=== PATIENT | male | born 1940 | race Caucasian/White ===

== ENCOUNTER → 2017-07-24 08:01 | Outpatient (CLI) | payer MEDICARE, OTHER, SELFPAY ==
[2016-05-31 08:46] VITALS: BMI 23.2
[2017-07-24 08:38] LABS: AST(SGOT) 18 U/L (15-37); Alanine Aminotransfer ALT/SGPT 20 U/L (16-61); Albumin, Serum 3.9 g/dL (3.2-5.0); Alkaline Phosphatase 118 U/L (45-117); Bilirubin, Direct 0.12 mg/dL (0.00-0.30); Cholesterol 120 mg/dL (200); Globulin 3.4 g/dL (2.2-4.2); High Density Lipoprotein 60 mg/dL; Protein, Total 7.3 g/dL (6.4-8.2); Triglycerides 113 mg/dL; Very Low Density Lipoprotein 23 mg/dL (5-40)
== END ==
PROVIDERS: Family Provider Family Medicine; PCP Family Medicine; Visit Provider Internal Medicine Cardiovascular Disease
DX: E78.5 Hyperlipidemia, unspecified (principal); Z79.899 Other long term (current) drug therapy
CPT/HCPCS: 36415; 80061; 80076

== ENCOUNTER → 2018-03-10 08:06 | Outpatient (CLI) | payer MEDICARE, OTHER, SELFPAY ==
[2016-05-31 08:46] VITALS: BMI 23.2
[2018-03-10 10:08] LABS: AST(SGOT) 16 U/L (15-37); Alanine Aminotransfer ALT/SGPT 22 U/L (16-61); Albumin, Serum 3.8 g/dL (3.2-5.0); Alkaline Phosphatase 113 U/L (45-117); Bilirubin, Direct 0.14 mg/dL (0.00-0.30); Cholesterol 113 mg/dL (200); Globulin 3.5 g/dL (2.2-4.2); High Density Lipoprotein 59 mg/dL; Protein, Total 7.3 g/dL (6.4-8.2); Triglycerides 121 mg/dL; Very Low Density Lipoprotein 24 mg/dL (5-40)
== END ==
PROVIDERS: Family Provider Family Medicine; PCP Family Medicine; Referring Provider Internal Medicine Cardiovascular Disease; Visit Provider Internal Medicine Cardiovascular Disease
DX: E78.5 Hyperlipidemia, unspecified (principal); Z79.899 Other long term (current) drug therapy
CPT/HCPCS: 36415; 80061; 80076

== ENCOUNTER → 2018-03-13 10:12 | Outpatient (CLI) | payer MEDICARE, OTHER, SELFPAY ==
[2016-05-31 08:46] VITALS: BMI 23.2
[2018-03-13 11:41] LABS: Absolute Lymphocyte Count 1.07 X10^3/ul (0.83-4.51); Absolute Neutrophil Count 5.1 X10^3/uL (2.0-7.7); Basophil# 0.04 X10^3/uL; Basophil% 0.6 % (0-1); Eosinophil# 0.22 X10^3/uL; Eosinophils% 3.1 % (0-5); Hematocrit 42.3 % (40-54); Hemoglobin 13.9 g/dl (13.0-16.5); Lymphocyte # 1.07 X10^3/ul (4.0); Lymphocyte % 15.2 % (19-41); Mean Corp Hgb Conc 32.9 g/gl (32-36); Mean Corpuscular Volume 97.5 fL (80-94); Mean Platelet Vol. 12.5 fl (6.2-12.0); Monocyte# 0.62 X10^3/uL; Monocyte% 8.8 % (0-10); Neutrophil # 5.08 X10^3/uL (2.7-7.7); Neutrophil % 72.2 % (47-70); Platelet Count 181 K/mm3 (150-450); RBC Distribution Width CV 13.1 % (11.6-14.6); RBC Distribution Width SD 46.2 fl (35.1-43.9); Red Blood Count 4.34 M/mm3 (4.6-6.2)
[2018-03-13 11:46] LABS: POSITIVE COUNT NO; POSITIVE DIFFERENTIAL NO; POSITIVE MORPHOLOGY NO
== END ==
PROVIDERS: Family Provider Family Medicine; PCP Family Medicine; Visit Provider Physician Assistant Medical
DX: I10 Essential (primary) hypertension (principal)
CPT/HCPCS: 36415; 85025

== ENCOUNTER → 2018-06-02 08:03 | Outpatient (CLI) | payer MEDICARE, OTHER, SELFPAY ==
[2016-05-31 08:46] VITALS: BMI 23.2
[2018-03-13 09:17] VITALS: BMI 22.5
== END ==
PROVIDERS: Family Provider Family Medicine; PCP Family Medicine; Visit Provider Psychiatry & Neurology Neurology
DX: G25.0 Essential tremor (principal); R56.9 Unspecified convulsions
CPT/HCPCS: 36415

== ENCOUNTER → 2018-09-03 08:02 | Outpatient (CLI) | payer MEDICARE, OTHER, SELFPAY ==
[2016-05-31 08:46] VITALS: BMI 23.2
[2018-09-03 09:43] LABS: AST(SGOT) 18 U/L (15-37); Alanine Aminotransfer ALT/SGPT 19 U/L (16-61); Albumin, Serum 3.8 g/dL (3.2-5.0); Alkaline Phosphatase 117 U/L (45-117); Bilirubin, Direct 0.15 mg/dL (0.00-0.30); Cholesterol 124 mg/dL (200); Globulin 3.3 g/dL (2.2-4.2); High Density Lipoprotein 57 mg/dL; Protein, Total 7.1 g/dL (6.4-8.2); Triglycerides 121 mg/dL; Very Low Density Lipoprotein 24 mg/dL (5-40)
== END ==
PROVIDERS: Family Provider Family Medicine; PCP Family Medicine; Referring Provider Internal Medicine Cardiovascular Disease; Visit Provider Internal Medicine Cardiovascular Disease
DX: E78.5 Hyperlipidemia, unspecified (principal)
CPT/HCPCS: 36415; 80061; 80076

== ENCOUNTER 2018-10-20 05:18 | Day surgery (SDC) | payer MEDICARE, OTHER, SELFPAY ==
[2016-05-31 08:46] VITALS: BMI 23.2
[2018-09-23 08:32] VITALS: BMI 22.9
--- NOTE | 2018-09-23 08:49 | HP_ITS ---
Intake Vital Signs 09/23/18 Height 5 ft 10 in 09/23/18 Weight: 160 lb 09/23/18 Body Mass Index (BMI) 22.9 09/23/18 Blood Pressure 138/89 H 09/23/18 Blood Pressure Location Rt brachial 09/23/18 Blood Pressure Position Sitting 09/23/18 Respiratory Rate 14 09/23/18 Pulse Rate 66 09/23/18 Pulse Source Monitor 09/23/18 Temperature 98.2 F 09/23/18 Temperature Source Oral 09/23/18 Pulse Ox 94 09/23/18 Oxygen Delivery Method room air Intake Visit Reasons: to discuss another c-scope Chief Complaint: Follow-up visit. Senior Writer Required: No Is patient in pain?: No Allergies No Known Allergies Allergy (Verified 09/23/18 08:33) Medications Vit C/E/Zn/Coppr/Lutein/Zeaxan [Preservision Areds 2 Softgel] 1 ea PO BID 05/30/16 [History Confirmed 09/23/18] Nitroglycerin [Nitrostat] 0.4 mg SUBLINGUAL Q5M PRN 10/23/16 [History Confirmed 09/23/18] Aspirin [Aspirin, Baby] 81 mg PO DAILY@0800 03/25/17 [History Confirmed 09/23/18] rosuvastatin 10 mg tablet 10 mg PO QHS #90 tab 11/27/17 [Rx Confirmed 09/23/18] carvedilol 12.5 mg tablet 12.5 mg PO BID #180 tab 01/05/18 [Rx Confirmed 09/23/18] oxcarbazepine 600 mg tablet 600 mg PO BID 03/13/18 [History Confirmed 09/23/18] ramipril 5 mg capsule 5 mg PO DAILY #90 cap 04/21/18 [Rx Confirmed 09/23/18] furosemide 40 mg tablet 40 mg PO DAILY #30 tab 05/18/18 [Rx Confirmed 09/23/18] [facility] Medical History Hemoptysis (Chronic) Seizure disorder (Chronic) Takotsubo syndrome (Chronic) Paroxysmal atrial fibrillation (Chronic) Atherosclerotic heart disease of [place] coronary artery without angina pectoris (Chronic) HTN (hypertension) (Chronic) HLD (hyperlipidemia) (Chronic) Left bundle branch block (Chronic) Persistent atrial fibrillation (Chronic) Ischemic cardiomyopathy (Chronic) Surgical History Hx of colonoscopy (Chronic) History of lithotripsy (Chronic ~06/12/01) History of loop recorder (Chronic ~02/11/06) Aortocoronary bypass status (Chronic ~12/07/09) Presence of implantable cardioverter-defibrillator (ICD) (Chronic ~10/24/16) Family History Father Heart failure Hypertension Mother Heart disease Social History Smoking Status: Former smoker alcohol intake: current alcohol intake frequency: a few times a week Alcohol type: hard liquor substance use type: does not use caffeine: Yes Type: carbonated beverages what type of physical activity do you participate in: other details: tredmill frequency: 3-4 times per week duration: 15-30 minutes/day seatbelt use: always do you feel safe at home: Yes HPI HPI HPI: THOAMS ADLER, is a 78 M who presents to the office today for HPI HPI Surgical H&P: Yes HPI: THOMAS ADLER, is a 78 M who presents to the office today for surgical consultation regarding a personal history of multiple colon polyps. The patient on March 25, 2017 per me had a colonoscopy. He had a sessile 2 cm polyp of the cecum and a sessile diameter polyp of the splenic flexure as well as diverticulosis. I did a saline lift procedure of the cecal lesion and used a hot snare to piecemeal resect the polyp however admittedly getting absolute complete removal was very difficult. Multiple fragments were obtained. The splenic flexure polyp was more routine. There was extensive diverticulosis of the sigmoid. The cecal polyp was fragments of tubular adenoma in the splenic flexure polyp was also tubular adenoma. The pacemaker has a pacemaker ICD in place however he has never had cardioversion. He denies chest pain or shortness of breath. He remains very active with his exercise protocol. He goes to the [facility] facility at least 3 times per week. He has not had any recent hospitalizations. He denies chest pain or shortness of breath. No bright red blood per rectum or melena. No abdominal pain. He otherwise enjoys good health ROS General General: No weight change, appetite, fatigue, colon cancer, breast cancer or weakness HEENT HEENT: No difficulty swallowing, eye injury, eye surgery, swollen glands or hoarseness Endo Endocrine: No thyroid disease, diabetes mellitus, thyroid cancer, Hair loss, heat intolerance or cold intolerance Skin Skin: No rash or changing moles Musc Musculoskeletal: No back problems, arthritis, rheumatoid arthritis, gout or joint pain Cardio Cardiovascular: Yes pacemaker, heart disease and high blood pressure; no murmur, atrial fibrillation, heart attack, heart stent, palpitations, shortness of breat with exertion or chest pain Psych Psychiatric: No depression, anxiety or hearing voices Resp Respiratory: No shortness of breath, No sleep apnea, No cough, No COPD, No asthma, No emphysema, No wheezing Gastro Gastrointestinal: No abdominal pain, No nausea or vomiting, No diarrhea, No constipation, No blood in stool, No acid reflux, No hemorrhoids, No ulcers, No gallbladder problem, No black,tarry stools Avelino Hematologic: No blood thinners, No blood disorders, No bleeding, No anemia, No blood clots Neuro Neurologic: No system reviewed and no additional complaints, except as docu, No as per HPI, No abnormal walking, No abnormal hearing, No abnormal movements, No abnormal speech, No behavioral changes, No burning sensations, No confusion, No seizure-like activity, No unsteadiness, No dizziness, No localized weakness, No frequent falls, No headache(s), No lack of coordination, No loss of vision, No memory loss, No numbness, No other visual disturbances, No radiating pain, No restless legs, No sensory deficit, No fainting, No tingling, No tremor(s), No weakness, No other Exam Const General: cooperative, healthy appearing, comfortable, no acute distress Nutritional Appearance: average body habitus Orientation: alert, awake Eyes General: appearance normal, both eyes and all related structures Chest Other: Left anterior upper chest palpable pacemaker ICD Resp Effort & Inspection: normal respiratory effort Auscultation: clear to auscultation bilaterally Cardio Rate: regular rate Rhythm: regular rhythm Heart Sounds: no murmurs GI Palpation: soft Auscultation: normal bowel sounds Musc Cervical Spine: normal cervical lordosis Extrem General: no calf tenderness bilaterally Psych Affect: normal affect Assessment & Plan Problems 1. Personal history of colonic polyps Z86.010 Plan 78-year-old gentleman who enjoys a good quality of life who has had a history of cecal and splenic flexure tubular adenoma. The tubular adenoma of the cecum was at least 2 cm and sessile and challenging to piecemeal remove with saline lift on March 25, 2017. He is enjoying a good quality of life and I believe that it is reasonable to offer him a repeat colonoscopy with very careful inspection of the cecum. I have discussed technique, benefit, risks and alternatives. He has had an opportunity to ask and have questions answered. We will continue him on his aspirin therapy. We will utilize monitored anesthesia care. CC: Dr. Kervin Perez M.D., F.A.C.S. Coding Level of Care Code Off vis,est,level 2 Diagnoses Personal history of colonic polyps Z86.010 09/23/18 0849 <Electronically signed by Rolando Perez MD> Date Rolando Perez MD I have re-examined the patient. There are no clinical changes since date of exam.
[2018-10-09 11:06] VITALS: BMI 22.2
[2018-10-20 05:54] VITALS: BP 145/74; PULSE 48; RESP 16; TEMP 36.2; O2SAT 95; BMI 21.4
--- NOTE | 2018-10-20 06:30 | COLBX_PTH ---
PATIENT: THOMAS ADLER LOC: EN U#:[id number] AGE/SX: 78/M ROOM: RE10/20/[address]: Dr. Rolando Perez MD : [id number] BED: DIS: 10/20/2018 SPEC #: [id number] RECD: 10/20/18 08:55 STATUS: JOSSUE ESTEFANIA #: [id number] FORD: 10/20/18 06:[address]: Rolando Perez DEPT: SURGICAL PATHOLOGY RECD BY: Jean Paul Hall ENTERED: 10/20/18 12:21 SP TYPE: COLON BX SANAZ DR: Dr. Zeferino Lantigua MD Tissues: A - Cecum, NOS B - Ascending colon C - Transverse colon D - Transverse colon E - SPLENIC FLEXURE Procedures: Surgery Specimen Level IV HEADER OPERATION: Colonoscopy PRE-OP DIAGNOSIS: Personal history colonic polyps TISSUE SUBMITTED: A - Cecum polyp, B - Proximal ascending polyp biopsy, C - Proximal transverse polyp biopsy, D - Mid transverse polyp, E - Splenic flexure polyp biopsy MICROSCOPIC DIAGNOSIS A. Cecum polyp: Tubular adenoma. B. Proximal ascending polyp biopsy: Tubular adenoma. C. Proximal transverse polyp biopsy: Tubular adenoma. D. Mid transverse polyp: Tubular adenoma. E. Splenic flexure polyp biopsy: Hyperplastic polyp. CE:josue 10/21/18 MICROSCOPIC DESCRIPTION Slides are reviewed. GROSS DESCRIPTION A - Received in fixative is one container labeled with the patient's name and designated cecal polyp. The specimen consists of multiple irregular fragments of light wilson soft tissue that in aggregate measure 0.7 x 0.3 x 0.1 cm. The specimen is totally submitted in one cassette. B - Received in fixative is one container labeled with the patient's name and designated proximal ascending polyp. The specimen consists of multiple irregular fragments of light wilson soft tissue that in aggregate measure 0.6 x 0.3 x 0.1 cm. The specimen is totally submitted in one cassette. C - Received in fixative is one container labeled with the patient's name and designated proximal transverse polyp. The specimen consists of multiple irregular fragments of light wilson soft tissue that in aggregate measure 1 x 0.5 x 0.1 cm. The specimen is totally submitted in one cassette. D - Received in fixative is one container labeled with the patient's name and designated mid transverse polyp. The specimen consists of one irregular fragment of light wilson soft tissue that measures 0.5 x 0.2 x 0.1 cm. The specimen is totally submitted in one cassette. E - Received in fixative is one container labeled with the patient's name and designated splenic flexure polyp. The specimen consists of multiple irregular fragments of light wilson soft tissue that in aggregate measure 1.5 x 0.6 x 0.1 cm. The specimen is totally submitted in one cassette. / AM:josue 10/20/18 TC:1 CPT: 58125 x5
[2018-10-20 07:10] VITALS: BP 129/85; BP 145/74; PULSE 82; RESP 16; TEMP 36.2; O2SAT 97
[2018-10-20 07:15] VITALS: BP 130/77; BP 145/74; PULSE 83; RESP 16; O2SAT 96
--- NOTE | 2018-10-20 07:15 | OP.ENDO_ITS ---
10/20/2018 Zeferino Lantigua Re : Colonoscopy procedure for Osbaldo Lantigua This procedure was performed on Saturday, October 20, 2018. My impressions and recommendations are as follows: Impressions : - Non-thrombosed external hemorrhoids, non-thrombosed internal hemorrhoids, internal hemorrhoids that prolapse with straining, but require manual replacement into the anal canal (Grade III) and enlarged prostate found on digital rectal exam. - Diverticulosis in the sigmoid colon and in the descending colon. - One 8 mm polyp in the cecum, removed with a cold snare. Resected and retrieved. - Three 3 to 4 mm polyps in the proximal ascending colon, removed with a cold biopsy forceps. Resected and retrieved. - One 4 mm polyp in the proximal transverse colon, removed with a cold biopsy forceps. Resected and retrieved. - One 7 mm polyp in the mid transverse colon, removed with a cold snare. Resected and retrieved. - One 9 mm polyp at the splenic flexure, removed with a cold biopsy forceps and removed with a cold snare. Resected and retrieved. Recommendations : - Repeat colonoscopy in 1 year for surveillance. - Telephone my office for pathology results in 1 week. - Discharge patient to home. - Resume previous diet. - Continue present medications. My findings are described in the full procedure note, which is enclosed. If I can be of further assistance, please feel free to contact me at Doctor phone number(s): Work: . Sincerely, Rolando Perez MD 10/20/2018 7:14:41 AM This report has been signed electronically.
[2018-10-20 07:20] VITALS: BP 122/98; BP 145/74; PULSE 76; RESP 16; O2SAT 94
[2018-10-20 07:25] VITALS: BP 126/62; BP 145/74; PULSE 78; RESP 16; TEMP 36.3; O2SAT 95
[2018-10-20 07:28] VITALS: BP 145/74
== END 2018-10-20 07:40 | disposition home or self-care (01) ==
LOC: EN 05:19 → AC 05:20
PROVIDERS: Family Provider Family Medicine; PCP Family Medicine; Referring Provider Family Medicine; Visit Provider Surgery
PROC: 0DJD8ZZ Inspection of Lower Intestinal Tract, Via Natural or Artificial Opening Endoscopic (ICD-10-PCS; CPT 45378; principal; 2018-10-20 06:25)
DX: D12.0 Benign neoplasm of cecum (principal); D12.2 Benign neoplasm of ascending colon; D12.3 Benign neoplasm of transverse colon; K63.5 Polyp of colon; K64.2 Third degree hemorrhoids; K64.4 Residual hemorrhoidal skin tags; K57.30 Diverticulosis of large intestine without perforation or abscess without bleeding; N40.0 Benign prostatic hyperplasia without lower urinary tract symptoms; Z86.010 Personal history of colon polyps; G40.909 Epilepsy, unspecified, not intractable, without status epilepticus; I11.9 Hypertensive heart disease without heart failure; I48.0 Paroxysmal atrial fibrillation; I25.10 Atherosclerotic heart disease of native coronary artery without angina pectoris; E78.00 Pure hypercholesterolemia, unspecified; I44.7 Left bundle-branch block, unspecified; I48.1 Persistent atrial fibrillation; I25.5 Ischemic cardiomyopathy; Z87.442 Personal history of urinary calculi; Z95.810 Presence of automatic (implantable) cardiac defibrillator; Z79.82 Long term (current) use of aspirin; Z79.899 Other long term (current) drug therapy; Z87.891 Personal history of nicotine dependence
CPT/HCPCS: 45380; 45385; 88305; J7120

== ENCOUNTER 2018-10-21 19:00 | Observation (INO) | payer MEDICARE, OTHER, SELFPAY ==
[2016-05-31 08:46] VITALS: BMI 23.2
[2018-10-20 05:54] VITALS: BMI 21.4
[2018-10-21] VITALS (8 sets, daily range): BP systolic 78–116; BP diastolic 43–96; PULSE 67–86; RESP 14–18; TEMP 36.4–36.6; O2SAT 94–97; BMI 22.5; BMI 22.1
--- NOTE | 2018-10-21 19:21 | EKG12_ITS ---
Test Reason : DIZZY Blood Pressure : / mmHG Vent. Rate : 070 BPM Atrial Rate : 070 BPM P-R Int : 162 ms QRS Dur : 178 ms QT Int : 500 ms P-R-T Axes : 067 064 219 degrees QTc Int : 540 ms Sinus rhythm with Premature atrial complexes Left bundle branch block Abnormal ECG Confirmed by ARELY HOPPER, GURPREET ([id number]), multimedia editor DIOGENES COFFEY ([id number]) on 10/26/2018 1:05:40 PM Referred By: Christoph Mendez Confirmed By:GURPREET MCGEE MD
[2018-10-21] MEDS: 0.9% Normal Saline 1,000 ML 1000 ML IV (19:27)
[2018-10-21 19:58] LABS: Anion Gap 8 (5-15); BUN 28 mg/dL (7-18); BUN/Creat Ratio 16.6 RATIO (10-20); Calcium,Total 7.8 mg/dL (8.5-10.1); Chloride 107 mmol/L (98-107); Creatinine, Serum 1.69 mg/dL (0.70-1.30); EST Glomerular Filtration Rate 42 mL/min (>60); Est Glom Filt Rate - Afr Amer 51 mL/min (>60); Estimated Creatinine Clearance 36.33 ml/min; Glucose 184 mg/dL (74-106); Sodium Level 140 mmol/L (136-145)
[2018-10-21 20:01] LABS: Absolute Lymphocyte Count 1.26 X10^3/ul (0.83-4.51); Absolute Neutrophil Count 10.9 X10^3/uL (2.0-7.7); Basophil# 0.03 X10^3/uL; Basophil% 0.2 % (0-1); Eosinophil# 0.16 X10^3/uL; Eosinophils% 1.2 % (0-5); Hematocrit 34.6 % (40-54); Hemoglobin 11.5 g/dl (13.0-16.5); Lactic Acid 1.3 mmol/L (0.4-2.0); Lymphocyte # 1.26 X10^3/ul (4.0); Lymphocyte % 9.6 % (19-41); Mean Corp Hgb Conc 33.2 g/gl (32-36); Mean Corpuscular Hgb 31.9 pg (27.0-32.0); Mean Corpuscular Volume 95.8 fL (80-94); Mean Platelet Vol. 12.1 fl (6.2-12.0); Monocyte# 0.85 X10^3/uL; Monocyte% 6.5 % (0-10); Neutrophil # 10.85 X10^3/uL (2.7-7.7); Neutrophil % 82.3 % (47-70); Platelet Count 184 K/mm3 (150-450); RBC Distribution Width CV 13.3 % (11.6-14.6); Red Blood Count 3.61 M/mm3 (4.6-6.2); White Blood Count 13.2 K/mm3 (4.4-11.0)
--- NOTE | 2018-10-21 20:08 | ED.DCSUM_ITS ---
History of Present Illness Chief Complaint: Dizziness Informant: Patient, Significant Other Onset: Today Context: Sudden Onset Timing: Continuous, Intermittent Quality: Lightheadedness Location: Home Current Severity: Mild Maximum Severity: Severe Worsened by: Upright position Relieved by: Better when supine Associated Symptoms: Passed out Narrative: Patient is a 78-year-old male who had colonoscopy performed yesterday. He did have biopsy. Been no report of black, maroon or bloody stools. He reports lightheadedness with standing. Patient passed out after urinating. He did hit his head. He has evidence of trauma right maxillary region. He denies ocular symptoms. He denies change in vision. Denies trouble with hearing or ringing in his ears. Denies difficulty opening or closing his mouth. He denies his teeth not lying up. He denies headache. Denies nausea or vomiting. He denies cardiac respiratory symptoms. He reports decreased urine output. He does report thirst, dry mouth and orthostatic symptoms with standing. Prior similar symptoms: No Recent Illness/Hospitalization: No - Past Medical History (1) Atherosclerotic heart disease of [place] coronary artery without angina pectoris Status: Chronic Comment: CABG x 2 OCHOA-LAD and DELVIS-D2 12/07/2009. (2) Chronic systolic (congestive) heart failure Status: Chronic (3) Essential hypertension Status: Chronic (4) HLD (hyperlipidemia) Status: Chronic (5) Ischemic cardiomyopathy Status: Chronic (6) Non-STEMI (non-ST elevated myocardial infarction) Status: Chronic (7) Paroxysmal atrial fibrillation Status: Chronic (8) Takotsubo syndrome Status: Chronic Past Medical History - Allergies and Home Meds Allergies/Adverse Reactions: Allergies No Known Allergies Allergy (Verified 10/21/18 19:23) Primary Care Physician: Zeferino Lantigua MD [Primary Care Provider] - Prior records reviewed: Yes Surgical History: - - Anoscopy with biopsy yesterday by Dr. Rolando Perez Lives: Spouse/ Significant Other Smoking Status: Current every day smoker Alcohol: None - Family History Maternal Family History: Family History (Last Reviewed 10/09/18 @ 11:27 by Galindo Gomez MD) Father Heart failure Hypertension Mother Heart disease Family History: Reports: - - mother with colon cancer Review of Systems General: Denies: Chills, Fever, Sweats Eyes: Denies: Visual changes - bilaterally, Blurred Vision - bilaterally, Diplopia ENT: Denies: Bilateral ear pain, Rhinorrhea, Sore throat Cardiovascular: Denies: Chest pain, Palpitations Respiratory: Denies: Dyspnea, Cough, Sputum, Dyspnea on exertion Gastrointestinal: Denies: Abdominal pain, Nausea, Vomiting, Diarrhea Genitourinary: Denies: Dysuria, Hematuria, Frequency Musculoskeletal: Denies: Myalgias, Arthralgias, Neck pain, Back pain, Swelling, Extremity Pain Skin: Denies: Rash Neurological: Reports: Weakness. Denies: Headache, Parasthesia Psych: Denies: Depression Hematologic: Denies: Easy bruising, Easy bleeding Allergy: Denies: Uticaria Physical Exam Vital Signs/Narrative: Vital Signs Temp Pulse Resp BP Pulse Ox 10/21/18 19:04 108/73 10/21/18 19:01 97.8 F 78 14 96 Inital Vital Signs reviewed: Yes General: Well nourished, Well developed, No Acute Distress Head: Normocephalic, Atraumatic Eyes: Perrl, EOMI. Negative for: Pale conjunctiva, Scleral icterus, - ENT: Moist mucous membranes, No rhinorrhea, TM's clear Neck: Supple, Nontender, No lymphadenopathy, No JVD Cardiovascular: Regular rate, No murmurs, Normal S1, Normal S2, Irregular Respiratory: No distress, CTA bilaterally, Chest nontender Abdomen: Soft, Nontender, Nondistended, Normal bowel sounds, No masses Rectal: Deferred Back: Nontender, Normal Inspection. Negative for: CVA tenderness Extremities: Nontender, No edema Skin: No rash, Pallor. Negative for: Cyanosis, Diaphoresis, Jaundice Neurological: Alert, Oriented x3, Cranial nerves II-XII grossly intact, Normal Strength, Normal Sensation Psychological: Normal affect, Normal Mood Diagnostic/Tx/Re-eval Laboratory Results 10/21/18 10/21/18 10/21/18 19:30 19:30 19:30 WBC 13.2 H RBC 3.61 L Hgb 11.5 L Hct 34.6 L MCV 95.8 H MCH 31.9 MCHC 33.2 RDW 13.3 RDW Differential 46.0 H Plt Count 184 MPV 12.1 H Immature Gran % (Auto) 0.200 Neut % (Auto) 82.3 H Lymph % (Auto) 9.6 L [place] % (Auto) 6.5 Eos % (Auto) 1.2 Baso % (Auto) 0.2 Absolute Neuts (auto) 10.9 H Absolute Lymphs (auto) 1.26 Total Counted Not Reportable Sodium 140 Potassium 4.0 Chloride 107 Carbon Dioxide 25.0 Anion Gap 8 BUN 28 H Creatinine 1.69 H Estim Creat Clear Calc 36.33 Est GFR (MDRD) Af Amer 51 L Est GFR (MDRD) Non-Af 42 L BUN/Creatinine Ratio 16.6 Glucose 184 H Lactic Acid 1.3 Calcium 7.8 L Last creatinine was 1.08. - Rhythm Strip Rhythm Strip: Sinus Rhythm Rate: 86 Ectopy: None - EKG Initial EKG Interpretation: Sinus Rhythm - Fill rate is 70. She is noted. MS interval is normal. [place] to the left. Prior: Unchanged - Medical Decision Making She is hypotensive. Suspect this is the cause of his orthostatic symptoms and fall. Baseline blood work was obtained. He was administered 1 L of normal saline wide open. Will reassess. Tach this is secondary to bowel prep yesterday. He may also have a vagal component since this occurred after urinating. Per he was pale and she documented low blood pressure at home. Patient blood pressure has improved to 105 after a liter of fluid. Plan is 23 observation ED Disposition - Plan for ED Patient: Disposition: Acute Care Hospital [facility] Diagnosis: Hypotension arterial, Severe dehydration, MARIANGEL (acute kidney injury) Referrals: Zeferino Lantigua MD [Primary Care Provider] -
[2018-10-21 20:12] LABS: POSITIVE COUNT NO; POSITIVE DIFFERENTIAL NO; POSITIVE MORPHOLOGY NO
[2018-10-21] MEDS: 0.9% Normal Saline 1,000 ML 125 ML IV (22:08)
--- NOTE | 2018-10-21 22:50 | NURSING ---
Gave report to Veda CHAHAL at this time, and passed over care to that RN.
--- NOTE | 2018-10-21 23:45 | HP.PCM_ITS ---
Problem List (1) Syncope Status: Acute Qualifiers: Encounter type: initial encounter History of Present Illness Date of Admission: 10/21/18 Chief Complaint: syncope Please see hystory and physical dictated beggining on 10/21/18 and completed on 10/21/18 for complete dictation Past Medical History Past Medical History (Chronic Problems): Chronic Problems (Last Reviewed 10/09/18 @ 11:27 by Galindo Gomez MD) Chronic systolic (congestive) heart failure (Chronic) Essential hypertension (Chronic) Takotsubo syndrome (Chronic) Paroxysmal atrial fibrillation (Chronic) Atherosclerotic heart disease of [place] coronary artery without angina pectoris (Chronic) CABG x 2 OCHOA-LAD and DELVIS-D2 12/07/2009. HLD (hyperlipidemia) (Chronic) Left bundle branch block (Chronic) Persistent atrial fibrillation (Chronic) Ischemic cardiomyopathy (Chronic) Presence of implantable cardioverter-defibrillator (ICD) (Chronic 10/24/16) Implant: 10/24/2016 Non-STEMI (non-ST elevated myocardial infarction) (Chronic) Medical History: Medical History (Last Reviewed 10/09/18 @ 11:27 by Galindo Gomez MD) Chronic systolic (congestive) heart failure (Chronic) I50.22 Essential hypertension (Chronic) I10 Takotsubo syndrome (Chronic) I51.81 Paroxysmal atrial fibrillation (Chronic) I48.0 Atherosclerotic heart disease of [place] coronary artery without angina pectoris (Chronic) I25.10 CABG x 2 OCHOA-LAD and DELVIS-D2 12/07/2009. HLD (hyperlipidemia) (Chronic) E78.5 Left bundle branch block (Chronic) I44.7 Persistent atrial fibrillation (Chronic) I48.1 Ischemic cardiomyopathy (Chronic) I25.5 Non-STEMI (non-ST elevated myocardial infarction) (Chronic) I21.4 Colon polyp K63.5 Polycythemia D75.1 Seizure disorder G40.909 Hemoptysis (Resolved) R04.2 Personal history of colonic polyps (Inactive) Z86.010 Allergies No Known Allergies Allergy (Verified 10/21/18 19:23) Home Medications: Ambulatory Orders Medication Instructions Recorded Vit C/E/Zn/Coppr/Lutein/Zeaxan 1 ea PO DAILY 05/30/16 [Preservision Areds 2 Softgel] Nitroglycerin (INPATIENT USE) 0.4 mg SUBLINGUAL Q5M PRN 10/23/16 [Nitrostat] Aspirin [Aspirin, Baby] 81 mg PO DAILY@0800 03/25/17 oxcarbazepine 600 mg tablet 600 mg PO BID 03/13/18 Carvedilol [Coreg (Beta Artis)] 12.5 mg PO BID 10/21/18 Cholecalciferol (VIT D3) [Vitamin 1,000 unit PO DAILY 10/21/18 D] Furosemide [Lasix] 40 mg PO DAILY 10/21/18 Ramipril [Altace] 5 mg PO DAILY 10/21/18 Rosuvastatin Calcium [Crestor] 10 mg PO QHS 10/21/18 Surgical History: Surgical History (Last Reviewed 10/09/18 @ 11:27 by Galindo Gomez MD) H/O coronary artery bypass surgery (Resolved) Onset Date: 12/07/09 Z95.1 CABG x 2 OCHOA-LAD and DELVIS-D2 12/07/2009. Presence of implantable cardioverter-defibrillator (ICD) (Chronic) Onset Date: 10/24/16 Z95.810 Implant: 10/24/2016 History of colonoscopy Onset Date: 03/25/17 Z98.890 History of lithotripsy Onset Date: 06/12/01 Z98.890 History of loop recorder (Resolved) Onset Date: ~02/11/06 Z98.890 Implant: 02/11/2006 Surgical History: - - Anoscopy with biopsy yesterday by Dr. Rolando Perez Lives: Spouse/ Significant Other Smoking Status: Current every day smoker Alcohol: None - *Family History Maternal Family History: Family History (Last Reviewed 10/09/18 @ 11:27 by Galindo Gomez MD) Father Heart failure Hypertension Mother Heart disease History Items: - - mother with colon cancer VTE Information - Inpt Only VTE Present on Admission: No VTE Mechan Device Prophylaxis: None VTE Pharm Prophylaxis ordered?: Yes Patient Problems: Active and Suspected Problems (Last Reviewed 10/09/18 @ 11:27 by Galindo Gomez MD) Hypotension arterial (Acute) Severe dehydration (Acute) MARIANGEL (acute kidney injury) (Acute) Syncope (Acute) - Physical Exam Vital Signs Temp Pulse Resp BP Pulse Ox 97.6 F L 84 18 78/49 L 94 10/21/18 22:20 10/21/18 22:25 10/21/18 22:20 10/21/18 22:25 10/21/18 22:20 Oxygen Delivery Method Room Air Weight: 69.9 kg Body Mass Index (BMI) 22.1 Orthostatic Vital Signs Start: 10/21/18 22:25 Freq: q24h Status: Active Protocol: Activity Type Activity Date Activity User E-Sign Co-Sign Detail Recorded Client Recorded Date Recorded By Document 10/21/18 22:25 CAD [id number] 10/21/18 22:31 CAD 10/21/18 22:25 Orthostatic Vitals Standing -Extremity Use Right Arm Sitting -Blood Pressure (90/60-120/80) 113/96 H -Extremity Use Right Arm -Pulse Rate (60-100) 86 Lying -Blood Pressure (90/60-120/80) 78/49 L -Extremity Use Right Arm -Pulse Rate (60-100) 84 Laboratory Tests Past 24 Hrs 10/21/18 10/21/18 10/21/18 19:30 19:30 19:30 WBC 13.2 H RBC 3.61 L Hgb 11.5 L Hct 34.6 L MCV 95.8 H MCH 31.9 MCHC 33.2 RDW 13.3 RDW Differential 46.0 H Plt Count 184 MPV 12.1 H Immature Gran % (Auto) 0.200 Neut % (Auto) 82.3 H Lymph % (Auto) 9.6 L [place] % (Auto) 6.5 Eos % (Auto) 1.2 Baso % (Auto) 0.2 Absolute Neuts (auto) 10.9 H Absolute Lymphs (auto) 1.26 Total Counted Not Reportable Sodium 140 Potassium 4.0 Chloride 107 Carbon Dioxide 25.0 Anion Gap 8 BUN 28 H Creatinine 1.69 H Estim Creat Clear Calc 36.33 Est GFR (MDRD) Af Amer 51 L Est GFR (MDRD) Non-Af 42 L BUN/Creatinine Ratio 16.6 Glucose 184 H Lactic Acid 1.3 Calcium 7.8 L Assessment/Plan All Active Problems (Last Reviewed 10/09/18 @ 11:27 by Galindo Gomez MD) Hypotension arterial (Acute) Severe dehydration (Acute) MARIANGEL (acute kidney injury) (Acute) Syncope (Acute) H/O coronary artery bypass surgery (Resolved 12/07/09) Hemoptysis (Resolved) History of loop recorder (Resolved ~02/11/06)
[2018-10-22] VITALS (12 sets, daily range): BP systolic 85–122; BP diastolic 45–103; PULSE 69–100; RESP 16–22; TEMP 36.8–37.1; O2SAT 93–97
--- NOTE | 2018-10-22 01:15 | PCM.HP.STD ---
Problem List (1) Syncope Status: Acute Qualifiers: Encounter type: initial encounter History of Present Illness Date of Admission: 10/21/18 Chief Complaint: Syncope The patient is a 78 year old M C room at [facility] after being brought in by kolton after he suffered a syncopal episode in his bathroom at home. His stated that she heard a thud and ran to the bathroom where she found him lying on the floor alert and trying to get up. Patient denied any chest pain or shortness of breath. Blood pressure charted by kolton was 129/62 with a heart rate of 97. Upon arrival to the emergency room, patient's blood pressure was 108/73. Lab was obtained on the patient, his white blood cell count was 13.2, creatinine was 1.69, BUN was 28, glucose was 184. Patient's stated that the patient had undergone a colonoscopy yesterday and had no untoward effects yesterday after he got home. EKG was performed which showed a normal sinus rhythm with PACs. Patient was given IV fluids in the emergency room, patient will be placed in observation status on PCU and fluids will be administered, repeat labs will be obtained. Patient has an ICD that is due for interrogation in November, I briefly talked with his etymology teacher by phone whether to have his ICD interrogated and we have come to the conclusion that we will wait to have this done until November. 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 HLD (hyperlipidemia) (Chronic) Left bundle branch block (Chronic) Persistent atrial fibrillation (Chronic) Ischemic cardiomyopathy (Chronic) Presence of implantable cardioverter-defibrillator (ICD) (Chronic 10/24/16) Implant: 10/24/2016 Non-STEMI (non-ST elevated myocardial infarction) (Chronic) Medical History: Medical History (Last Reviewed 10/09/18 @ 11:27 by Galindo Gomez MD) Chronic systolic (congestive) heart failure (Chronic) I50.22 Essential hypertension (Chronic) I10 Takotsubo syndrome (Chronic) I51.81 Paroxysmal atrial fibrillation (Chronic) I48.0 Atherosclerotic heart disease of [place] coronary artery without angina pectoris (Chronic) I25.10 CABG x 2 OCHOA-LAD and DELVIS-D2 12/07/2009. HLD (hyperlipidemia) (Chronic) E78.5 Left bundle branch block (Chronic) I44.7 Persistent atrial fibrillation (Chronic) I48.1 Ischemic cardiomyopathy (Chronic) I25.5 Non-STEMI (non-ST elevated myocardial infarction) (Chronic) I21.4 Colon polyp K63.5 Polycythemia D75.1 Seizure disorder G40.909 Hemoptysis (Resolved) R04.2 Personal history of colonic polyps (Inactive) Z86.010 Allergies No Known Allergies Allergy (Verified 10/21/18 19:23) Home Medications: Ambulatory Orders Medication Instructions Recorded Vit C/E/Zn/Coppr/Lutein/Zeaxan 1 ea PO DAILY 05/30/16 [Preservision Areds 2 Softgel] Nitroglycerin (INPATIENT USE) 0.4 mg SUBLINGUAL Q5M PRN 10/23/16 [Nitrostat] Aspirin [Aspirin, Baby] 81 mg PO DAILY@0800 03/25/17 oxcarbazepine 600 mg tablet 600 mg PO BID 03/13/18 Carvedilol [Coreg (Beta Artis)] 12.5 mg PO BID 10/21/18 Cholecalciferol (VIT D3) [Vitamin 1,000 unit PO DAILY 10/21/18 D] Furosemide [Lasix] 40 mg PO DAILY 10/21/18 Ramipril [Altace] 5 mg PO DAILY 10/21/18 Rosuvastatin Calcium [Crestor] 10 mg PO QHS 10/21/18 Surgical History: Surgical History (Last Reviewed 10/09/18 @ 11:27 by Galindo Gomez MD) H/O coronary artery bypass surgery (Resolved) Onset Date: 12/07/09 Z95.1 CABG x 2 OCHOA-LAD and DELVIS-D2 12/07/2009. Presence of implantable cardioverter-defibrillator (ICD) (Chronic) Onset Date: 10/24/16 Z95.810 Implant: 10/24/2016 History of colonoscopy Onset Date: 03/25/17 Z98.890 History of lithotripsy Onset Date: 06/12/01 Z98.890 History of loop recorder (Resolved) Onset Date: ~02/11/06 Z98.890 Implant: 02/11/2006 Surgical History: cataract, coronary bypass surgery, - - Anoscopy with biopsy yesterday by Dr. Rolando Perez, ICD insertion Psychiatric History: No pertinent psych hx Lives: Spouse/ Significant Other Smoking Status: Current every day smoker Tobacco Use: Cigarettes Alcohol: None Drugs: None - *Family History Maternal Family History: Family History (Last Reviewed 10/09/18 @ 11:27 by Galindo Gomez MD) Father Heart failure Hypertension Mother Heart disease History Items: - - mother with colon cancer Review of Systems Constitutional: Reports: Weakness. Denies: Anorexia, Chills, Fever, Night Sweats, Malaise, Weight Change, Fatigue Eyes: Denies: Cataracts, Conjunctivae Inflammation, Double vision, Drainage HEENT: Denies: Difficulty Swallowing, Dysphasia, Ear Pain, Eye Pain, Hearing Changes, Nasal bleeding, Nasal Congestion, Post Nasal Drip Cardiovascular: Reports: Syncope. Denies: Chest Pain, Claudication, Chest Pressure, Chest Tightness, Edema, Heaviness, Palpitations Respiratory: Denies: Cough, Hemoptysis, Pleuritic Pain, Shortness of Breath, Shortness of breath at rest, Shortness of breath upon exertion Gastrointestinal: Denies: Abdominal Pain, Constipation, Diarrhea, Hematemesis, Hematochezia, Nausea, Melena, Vomiting Genitourinary: Denies: Dysuria, Frequency, Hematuria, Hesitancy, Urgency Musculoskeletal: Denies: Back Pain, Foot Pain, Hand Pain, Joint Pain, Joint stiffness, Joint swelling, Joint Tenderness, Leg Pain Skin: Denies: Dryness, Jaundice, Pruritis, Rash Neurological: Denies: Blurred vision, Double vision, Change in Speech, Slurred speech, Difficulty swallowing, Focal weakness, Headaches, Incoordination, Numbness, Tingling Psychiatric: Denies: Anxiety, Depression, Homicidal Ideations, Suicidal Ideations Endocrine: Denies: Change in Body Habitus, Heat/ Cold Intolerance, Polydipsia, Polyuria Hematologic/ Lymphatic: Denies: Adenopathy, Anemia, Easy Bruising, Easy Bleeding, Petechiae, Purpura VTE Information - Inpt Only VTE Present on Admission: No VTE Mechan Device Prophylaxis: SCD's VTE Pharm Prophylaxis ordered?: No Reason prophylaxis not ordered:: Treatment Not Indicated Patient Problems: Active and Suspected Problems (Last Reviewed 10/09/18 @ 11:27 by Galindo Gomez MD) Hypotension arterial (Acute) Severe dehydration (Acute) MARIANGEL (acute kidney injury) (Acute) Syncope (Acute) - Physical Exam General: Alert, Oriented x3, Cooperative, Well developed, Well nourished, - - Patient appeared frail and weak HEENT: Atraumatic, PERRLA, EOMI, Normocephalic Oral: Moist Mucosa Neck: Supple, No JVD, Negative Carotid Bruits, No Nuchal Rigidity, Trachea Midline, Thyroid Normal Size and Texture Lungs: Clear to auscultation, Normal air movement, No rhonchi, No wheeze, No rales Cardiovascular: Regular rate, Regular Rhythm, Normal S1, Normal S2, No murmurs, No Ectopic Activity, PMI Normal, No rub noted, No Gallop Abdomen: Bowel Sounds Present, Soft, Non Tender, Non-Distended, No hernias noted Extremities: No clubbing, No cyanosis, No edema, Capillary Refill Less than 3 Seconds Skin: No rashes, No breakdown Musculoskeletal: No Tenderness to Palpation of Joints or Extremities Neurological: Cranial nerves II-XII grossly intact, Neuro grossly intact, Sensory exam intact to light touch and pain, Coordination normal Psych/Mental Status: Normal Affect, Appropriate, Alert and oriented to time, place, person, mood and affect Vital Signs Temp Pulse Resp BP Pulse Ox 97.6 F L 82 18 78/49 L 94 10/21/18 22:20 10/21/18 22:59 10/21/18 22:20 10/21/18 22:25 10/21/18 22:20 Oxygen Delivery Method Room Air Weight: 69.9 kg Body Mass Index (BMI) 22.1 Orthostatic Vital Signs Start: 10/21/18 22:25 Freq: q24h Status: Active Protocol: Activity Type Activity Date Activity User E-Sign Co-Sign Detail Recorded Client Recorded Date Recorded By Document 10/21/18 22:25 CAD [id number] 10/21/18 22:31 CAD 10/21/18 22:25 Orthostatic Vitals Standing -Extremity Use Right Arm Sitting -Blood Pressure (90/60-120/80) 113/96 H -Extremity Use Right Arm -Pulse Rate (60-100) 86 Lying -Blood Pressure (90/60-120/80) 78/49 L -Extremity Use Right Arm -Pulse Rate (60-100) 84 Intake and Output for Last 24 Hours 10/20/18 10/21/18 10/22/18 23:59 23:59 23:59 Intake Total 232 / 232 Balance 232 / 232 Laboratory Tests Past 24 Hrs 10/21/18 10/21/18 10/21/18 19:30 19:30 19:30 WBC 13.2 H RBC 3.61 L Hgb 11.5 L Hct 34.6 L MCV 95.8 H MCH 31.9 MCHC 33.2 RDW 13.3 RDW Differential 46.0 H Plt Count 184 MPV 12.1 H Immature Gran % (Auto) 0.200 Neut % (Auto) 82.3 H Lymph % (Auto) 9.6 L Archer % (Auto) 6.5 Eos % (Auto) 1.2 Baso % (Auto) 0.2 Absolute Neuts (auto) 10.9 H Absolute Lymphs (auto) 1.26 Total Counted Not Reportable Sodium 140 Potassium 4.0 Chloride 107 Carbon Dioxide 25.0 Anion Gap 8 BUN 28 H Creatinine 1.69 H Estim Creat Clear Calc 36.33 Est GFR (MDRD) Af Amer 51 L Est GFR (MDRD) Non-Af 42 L BUN/Creatinine Ratio 16.6 Glucose 184 H Lactic Acid 1.3 Calcium 7.8 L Assessment/Plan All Active Problems (Last Reviewed 10/09/18 @ 11:27 by Galindo Gomez MD) Hypotension arterial (Acute) Severe dehydration (Acute) MARIANGEL (acute kidney injury) (Acute) Syncope (Acute) H/O coronary artery bypass surgery (Resolved 12/07/09) Hemoptysis (Resolved) History of loop recorder (Resolved ~02/11/06) #1 syncopal episode-possibly secondary to orthostatic hypotension, patient will be placed into observation status on PCU, IV fluids will be administered, vitals will be monitored including orthostatic vital signs of possible #2 acute dehydration-probably secondary to preparation for colonoscopy and the use of diuretics, I do not have a recent serum creatinine on the patient, the last one in the patient's chart here at the hospital was in 2017. Patient's last creatinine in April 2017-it was 1.2, patient's blood pressure medications will be held at this time due to his hypotension, IV fluids will be administered, labs will be repeated #3 systolic hypotension-patient's blood pressure will be monitored #4 ischemic cardiomyopathy #5 essential hypertension #6 hyperlipidemia Code Visit OBSV E&M: [id number] Initial observation care L3
--- NOTE | 2018-10-22 02:33 | CT_ITS ---
We are attempting to reach an attending provider to discuss findings. An addendum with communication details will be sent when the communication is complete. STUDY: CT ABDOMEN AND PELVIS WITHOUT CONTRAST REASON FOR EXAM: Male, 78 years old. Syncope RADIATION DOSAGE (If Supplied By Facility): CTDIvol = ( 6.10 ) mGy, DLP = ( 341.22 ) mGycm TECHNIQUE: Transaxial images were obtained from the dome of the diaphragm to the symphysis pubis without oral contrast, and without intravenous contrast. Sagittal and coronal images were reconstructed. Individualized dose optimization techniques were used for this CT. COMPARISON: CT chest July 25, 2016. FINDINGS: Evaluation limited by lack of IV and oral contrast. Atelectasis/scarring within the lungs. Calcified left lower lobe 8 mm nodule likely granuloma. There is a right lower lobe 2.1 cm pulmonary nodule present. Coronary artery calcifications. Cardiac pacemaker leads. Is hyperdense fluid adjacent to the liver. Evaluation for posttraumatic injury is limited by lack of IV contrast. There is no significant intrahepatic ductal dilatation. Cannot exclude post traumatic injury to the liver. Normal gallbladder and extrahepatic biliary system. Spleen is enlarged at 14 cm and appears heterogeneous. There is multiple calcifications present. Calcifications likely represent prior granulomatous disease. There is a small amount of adjacent fluid. Given the history of trauma splenic injury is not excluded. Evaluation limited by lack of IV contrast material. Normal unenhanced pancreas. Normal unenhanced bilateral adrenal glands. No hydronephrosis or nephrolithiasis. 1.3 cm low-attenuation structure right kidney likely representing a cyst. There is a hyperdense 1.6 cm structure within the right kidney. There is a 1 cm hyperdense structure within the left kidney. There are multiple low-attenuation structures within the left kidney measuring up to 1.3 cm likely representing cyst. Evaluation however is limited by lack of IV contrast material. Ultrasound would be recommended to further evaluate . There is a moderate hiatal hernia. Evaluation of bowel is limited by lack of IV and oral contrast. No free air is seen. There are multiple colonic diverticula consistent with diverticulosis. There is non-visualization of the appendix. There is diffuse atherosclerotic calcification of the abdominal aorta, without a demonstrated aneurysm. Cannot evaluate for dissection or post traumatic injury due to lack of IV contrast. There is no significant periaortic hematoma identified. Nonspecific subcentimeter short axis mesenteric and retroperitoneal lymph nodes. Normal urinary bladder. Moderate amount of hyperdense fluid within the abdomen and pelvis. The hyperdense fluid be concerning for blood products given the patient's history of trauma recommend CT scan with IV contrast to further evaluate. Small bilateral fat-containing inguinal hernias. There are diffuse degenerative changes of the visualized lumbar spine. 5 mm retrolisthesis L1 on L2. Severe neural foraminal narrowing at L1-L2. CT/Abdomen/Pelvis without Cont IMPRESSION: Hyperdense fluid throughout the abdomen and pelvis concerning for blood products. Origin of which cannot be determined on this noncontrast enhanced study. Recommend CT scan of the abdomen and pelvis with IV contrast. The spleen does appear heterogeneous which may represent the origin of the blood products however this is not definitive. Right lower lobe pulmonary nodule. This was not seen on prior CT angiogram. Findings would be concerning for neoplastic process recommend dedicated CT scan of the chest to further evaluate. There is hyperdense and hypodense structures within the bilateral kidneys incompletely characterized by the lack of contrast. Recommend ultrasound on a nonemergent basis. The hyperdense structures may represent hyperdense/proteinaceous cysts however neoplasm cannot be totally excluded on this study. Diverticulosis. No CT evidence for acute diverticulitis. Other findings as discussed above. Electronically Signed: Chintan Agarwal, at 4:32 EDT Tel , Service support ,
[2018-10-22 03:01] LABS: Absolute Neutrophil Count 12.5 X10^3/uL (2.0-7.7); Basophil# 0.01 X10^3/uL; Basophil% 0.1 % (0-1); Eosinophil# 0.01 X10^3/uL; Eosinophils% 0.1 % (0-5); Hematocrit 28.8 % (40-54); Hemoglobin 9.7 g/dl (13.0-16.5); Lymphocyte % 6.3 % (19-41); Mean Corp Hgb Conc 33.7 g/gl (32-36); Mean Corpuscular Hgb 31.8 pg (27.0-32.0); Mean Corpuscular Volume 94.4 fL (80-94); Mean Platelet Vol. 11.7 fl (6.2-12.0); Monocyte# 0.99 X10^3/uL; Monocyte% 6.9 % (0-10); Neutrophil # 12.46 X10^3/uL (2.7-7.7); Neutrophil % 86.5 % (47-70); POSITIVE COUNT NO; POSITIVE DIFFERENTIAL NO; POSITIVE MORPHOLOGY NO; Platelet Count 178 K/mm3 (150-450); RBC Distribution Width CV 13.5 % (11.6-14.6); RBC Distribution Width SD 46.4 fl (35.1-43.9); Red Blood Count 3.05 M/mm3 (4.6-6.2); White Blood Count 14.4 K/mm3 (4.4-11.0)
[2018-10-22 03:25] LABS: Anion Gap 9 (5-15); BUN 34 mg/dL (7-18); BUN/Creat Ratio 19.3 RATIO (10-20); Calcium,Total 7.6 mg/dL (8.5-10.1); Chloride 111 mmol/L (98-107); Creatinine, Serum 1.76 mg/dL (0.70-1.30); EST Glomerular Filtration Rate 40 mL/min (>60); Est Glom Filt Rate - Afr Amer 48 mL/min (>60); Glucose 127 mg/dL (74-106); Potassium 4.3 mmol/L (3.5-5.1); Sodium Level 143 mmol/L (136-145)
--- NOTE | 2018-10-22 04:46 | PCM.CONS.GEN ---
Problem List (1) Splenic trauma Status: Acute Qualifiers: Encounter type: initial encounter Qualified Code(s): S36.00XA - Unspecified injury of spleen, initial encounter Reason for Consult Date of Consultation: 10/22/18 History of Present Illness: The patient is a 78 year old M who I have been asked to see by Dr. Mendez.. The patient presented to the emergency room last night at 6:45 PM. He had had a syncopal spell. It is of note that at 7 AM on October 20, 2018 I had performed a colonoscopy on him. He is on routine aspirin and the aspirin therapy was continued up to the time of the procedure not the day of the procedure. The procedure was notable for a resection of 7 polyps. Of pertinence was that the resections were performed with cold forceps or cold snare. No hot snare was utilized throughout. A 7 mm polyp was removed from the mid transverse colon with a cold snare. Likely the polyp of issue was a 9 mm polyp at the splenic flexure on the inside curvature. This did require manipulation of the scope to get angulation to remove that with a cold snare. The patient had monitored anesthesia care. Technically I did not feel that excessive pressure was placed upon the scope however he did require rotating the scope 180 degrees in order to locate the polyp more to the 4 o'clock position. The patient recovered appropriately was discharged home. Apparently 24 hours later yesterday morning he awoke seemingly without problems and he went into his office. He returned home and again by report he had taken his Lasix yesterday morning and he did not drink his normal amount throughout the day. No particular reasons just simply stating he did not feel like it. He had a very minimal supper mostly of soup. At some point he made comment to his of left shoulder tip pain. She decided to take his blood pressure at home. The report was about 85 systolic. She thought possibly the machine is not functioning correctly. The patient then had a syncopal episode and they brought him directly to the emergency room. The patient was felt to be bowel prep volume depleted and was admitted to a regular floor. He has baseline BUN is up approximately 20. On presentation his BUN was 28. His baseline creatinine is approximately 1.2. On presentation his creatinine was 1.69. His baseline hemoglobin with most recent checked March 13, 2018 was 13.9. His admission hemoglobin was 11.5 and hematocrit 34.6 at 1930 and a recheck at 2:50 AM on August 22 had a hemoglobin of 9.7 and hematocrit of 28.8. Platelet count is 178,000. This stimulated the obtaining of a CT scan. This demonstrates marked abnormality of the spleen with free fluid in the abdomen. The CAT scan was done without IV contrast. The radiologist had been given information the patient had a syncopal episode and a fall and so was directing his attention to generalized blunt force trauma to the abdomen. There is no free air. White blood cell count on presentation was 13.2 and upon recheck 14.4 The patient is currently denying any abdominal pain. 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 HLD (hyperlipidemia) (Chronic) Left bundle branch block (Chronic) Persistent atrial fibrillation (Chronic) Ischemic cardiomyopathy (Chronic) Presence of implantable cardioverter-defibrillator (ICD) (Chronic 10/24/16) Implant: 10/24/2016 Non-STEMI (non-ST elevated myocardial infarction) (Chronic) Medical History: Medical History (Last Reviewed 10/09/18 @ 11:27 by Galindo Gomez MD) Chronic systolic (congestive) heart failure (Chronic) I50.22 Essential hypertension (Chronic) I10 Takotsubo syndrome (Chronic) I51.81 Paroxysmal atrial fibrillation (Chronic) I48.0 Atherosclerotic heart disease of [place] coronary artery without angina pectoris (Chronic) I25.10 CABG x 2 OCHOA-LAD and DELVIS-D2 12/07/2009. HLD (hyperlipidemia) (Chronic) E78.5 Left bundle branch block (Chronic) I44.7 Persistent atrial fibrillation (Chronic) I48.1 Ischemic cardiomyopathy (Chronic) I25.5 Non-STEMI (non-ST elevated myocardial infarction) (Chronic) I21.4 Colon polyp K63.5 Polycythemia D75.1 Seizure disorder G40.909 Hemoptysis (Resolved) R04.2 Personal history of colonic polyps (Inactive) Z86.010 Allergies No Known Allergies Allergy (Verified 10/21/18 19:23) Home Medications: Ambulatory Orders Medication Instructions Recorded Vit C/E/Zn/Coppr/Lutein/Zeaxan 1 ea PO DAILY 05/30/16 [Preservision Areds 2 Softgel] Nitroglycerin (INPATIENT USE) 0.4 mg SUBLINGUAL Q5M PRN 10/23/16 [Nitrostat] Aspirin [Aspirin, Baby] 81 mg PO DAILY@0800 03/25/17 oxcarbazepine 600 mg tablet 600 mg PO BID 03/13/18 Carvedilol [Coreg (Beta Artis)] 12.5 mg PO BID 10/21/18 Cholecalciferol (VIT D3) [Vitamin 1,000 unit PO DAILY 10/21/18 D] Furosemide [Lasix] 40 mg PO DAILY 10/21/18 Ramipril [Altace] 5 mg PO DAILY 10/21/18 Rosuvastatin Calcium [Crestor] 10 mg PO QHS 10/21/18 Surgical History: Surgical History (Last Reviewed 10/09/18 @ 11:27 by Galindo Gomez MD) H/O coronary artery bypass surgery (Resolved) Onset Date: 12/07/09 Z95.1 CABG x 2 OCHOA-LAD and DELVIS-D2 12/07/2009. Presence of implantable cardioverter-defibrillator (ICD) (Chronic) Onset Date: 10/24/16 Z95.810 Implant: 10/24/2016 History of colonoscopy Onset Date: 03/25/17 Z98.890 History of lithotripsy Onset Date: 06/12/01 Z98.890 History of loop recorder (Resolved) Onset Date: ~02/11/06 Z98.890 Implant: 02/11/2006 Surgical History: - - Anoscopy with biopsy yesterday by Dr. Rolando Perez Lives: Spouse/ Significant Other Smoking Status: Current every day smoker Tobacco Use: Cigarettes Alcohol: None Drugs: None - *Family History Maternal Family History: Family History (Last Reviewed 10/09/18 @ 11:27 by Galindo Gomez MD) Father Heart failure Hypertension Mother Heart disease History Items: - - mother with colon cancer Patient Problems: Active and Suspected Problems (Last Reviewed 10/09/18 @ 11:27 by Galindo Gomez MD) Hypotension arterial (Acute) Severe dehydration (Acute) MARIANGEL (acute kidney injury) (Acute) Syncope (Acute) Splenic trauma (Acute) - Physical Exam General: Alert, Oriented x3, Cooperative, No apparent distress Oral: Dry Mucosa Lungs: Clear to auscultation Cardiovascular: - - Radial pulse 3+ Abdomen: Soft, Non Tender - Mildly distended, Hypoactive Bowel Sounds Vital Signs Temp Pulse Resp BP Pulse Ox 98.8 F 69 16 105/60 95 10/22/18 03:40 10/22/18 03:40 10/22/18 03:40 10/22/18 03:40 10/22/18 03:40 Oxygen Delivery Method Room Air Weight: 154 lb 1.65 oz Body Mass Index (BMI) 22.1 Orthostatic Vital Signs Start: 10/21/18 22:25 Freq: q24h Status: Active Protocol: Activity Type Activity Date Activity User E-Sign Co-Sign Detail Recorded Client Recorded Date Recorded By Document 10/21/18 22:25 CAD [id number] 10/21/18 22:31 CAD 10/21/18 22:25 Orthostatic Vitals Standing -Extremity Use Right Arm Sitting -Blood Pressure (90/60-120/80) 113/96 H -Extremity Use Right Arm -Pulse Rate (60-100) 86 Lying -Blood Pressure (90/60-120/80) 78/49 L -Extremity Use Right Arm -Pulse Rate (60-100) 84 Intake and Output for Last 24 Hours 10/20/18 10/21/18 10/22/18 23:59 23:59 23:59 Intake Total 232 / 232 Balance 232 / 232 Laboratory Tests Past 24 Hrs 10/21/18 10/21/18 10/21/18 19:30 19:30 19:30 WBC 13.2 H RBC 3.61 L Hgb 11.5 L Hct 34.6 L MCV 95.8 H MCH 31.9 MCHC 33.2 RDW 13.3 RDW Differential 46.0 H Plt Count 184 MPV 12.1 H Immature Gran % (Auto) 0.200 Neut % (Auto) 82.3 H Lymph % (Auto) 9.6 L Blair % (Auto) 6.5 Eos % (Auto) 1.2 Baso % (Auto) 0.2 Absolute Neuts (auto) 10.9 H Absolute Lymphs (auto) 1.26 Total Counted Not Reportable Sodium 140 Potassium 4.0 Chloride 107 Carbon Dioxide 25.0 Anion Gap 8 BUN 28 H Creatinine 1.69 H Estim Creat Clear Calc 36.33 Est GFR (MDRD) Af Amer 51 L Est GFR (MDRD) Non-Af 42 L BUN/Creatinine Ratio 16.6 Glucose 184 H Lactic Acid 1.3 Calcium 7.8 L Blood Type Antibody Screen Crossmatch 10/22/18 10/22/18 10/22/18 02:50 02:50 03:54 WBC 14.4 H RBC 3.05 L Hgb 9.7 L Hct 28.8 L MCV 94.4 H MCH 31.8 MCHC 33.7 RDW 13.5 RDW Differential 46.4 H Plt Count 178 MPV 11.7 Immature Gran % (Auto) 0.100 Neut % (Auto) 86.5 H Lymph % (Auto) 6.3 L Blair % (Auto) 6.9 Eos % (Auto) 0.1 Baso % (Auto) 0.1 Absolute Neuts (auto) 12.5 H Absolute Lymphs (auto) 0.90 Total Counted Not Reportable Sodium 143 Potassium 4.3 Chloride 111 H Carbon Dioxide 23.0 Anion Gap 9 BUN 34 H Creatinine 1.76 H Estim Creat Clear Calc 34.20 Est GFR (MDRD) Af Amer 48 L Est GFR (MDRD) Non-Af 40 L BUN/Creatinine Ratio 19.3 Glucose 127 H Lactic Acid Calcium 7.6 L Blood Type A POSITIVE Antibody Screen NEGATIVE Crossmatch See Detail Current heart rate is 89. On presentation heart rate was 70. On presentation blood pressure was 105/43. Current blood pressure is 97/65. Assessment/Plan All Active Problems (Last Reviewed 10/09/18 @ 11:27 by Galindo Gomez MD) Hypotension arterial (Acute) Severe dehydration (Acute) MARIANGEL (acute kidney injury) (Acute) Syncope (Acute) Splenic trauma (Acute) H/O coronary artery bypass surgery (Resolved 12/07/09) Hemoptysis (Resolved) History of loop recorder (Resolved ~02/11/06) 78-year-old gentleman. Now almost 44 hours status post colonoscopy with resection of 7 colonic polyps. The area of concern would focus on the splenic flexure polyp which was on the lesser curvature side requiring rotation of the scope. Patient appears to have had a splenic capsular injury. It is likely that that remained contained until later yesterday when there likely was rupture of that capsule. Based upon relative dehydration, his taking of his furosemide, current laboratory and vital signs I estimate as much as a 5 unit bleed. The patient does have significant cardiac history with a pacemaker defibrillator in place and a history of ischemic cardiomyopathy. In addition he has a degree of volume depletion and dehydration in addition to his blood loss. He is at increased operative risk. I have discussed treatment options with the patient. I believe that he should be considered a candidate for interventional radiology imaging of the spleen with hopefully the potential for embolization. I believe that this would be a lesser intervention and a splenectomy. The patient may remain stable with blood transfusion but the degree of free blood and amount of current blood loss with grade V injury may require surgical intervention.. I have further discussed with him technique of laparoscopic splenectomy versus open splenectomy. Again in the traumatic situation laparoscopic control may be quite challenging. I was contacted approximately 3:45 AM today. I have presented and evaluated the patient. Although he would otherwise appear to be cardiovascular stable I believe that he has had more blood loss than otherwise appreciated. Although the initial concept was volume depletion from his bowel prep then syncope and then blunt trauma to the abdomen, I have suspicion that likely etiology was splenic capsular injury related to the colonoscopy with subsequent blood loss volume depletion. I am recommending transfer to a tertiary institution where interventional radiology hopefully can selectively inspect the spleen for potential selective embolization. I have requested a second IV be placed and the patient will be receiving 2 units of packed red cells. had already contacted [facility] who is agreeable to accepting the transfer. I concur. Although his current CAT scan was not performed with contrast, the patient is demonstrating acute dehydration and potential for acute kidney injury on top of chronic renal insufficiency. I think consideration for direct IR procedure for potential intervention would be a reasonable concept restricting contrast material for this procedure rather than proceeding with 100 cc of contrast required for CT. Therefore I requested that we not repeat the CT scan locally. I have also updated the patient and present regarding his ongoing care. I will continue to assist with resuscitation and monitoring while he is still here at [facility] M[facility]
--- NOTE | 2018-10-22 05:02 | NURSING ---
Called [facility] and gave report to TIRSO Lawrence
[2018-10-22] MEDS: 0.9% NaCl Peripheral Flush Adult/Peds IV ×2 (05:30→05:31)
--- NOTE | 2018-10-22 05:58 | NURSING ---
[facility] here at this time to transport Pt to [facility]. TIRSO Lawrence called again from [facility] to inform of the transport.
--- NOTE | 2018-10-22 19:43 | DS.PCM_ITS ---
Discharge Date and Diagnosis Date of Admission: 10/21/18 Date of Discharge: 10/22/18 - Primary Discharge Diagnosis #1 syncope secondary to hypotension from dehydration and acute blood loss #2 hemorrhagic shock secondary to acute blood loss from splenic tear #3 splenic tear with hemoperitoneum #4 ischemic cardiomyopathy #5 acute blood loss anemia secondary to splenic tear requiring transfusion #6 acute kidney injury - Secondary Discharge Diagnosis Chronic Problems (Last Reviewed 10/09/18 @ 11:27 by Galindo Gomez MD) Chronic systolic (congestive) heart failure (Chronic) Essential hypertension (Chronic) Takotsubo syndrome (Chronic) Paroxysmal atrial fibrillation (Chronic) 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 HLD (hyperlipidemia) (Chronic) Left bundle branch block (Chronic) Persistent atrial fibrillation (Chronic) Ischemic cardiomyopathy (Chronic) Presence of implantable cardioverter-defibrillator (ICD) (Chronic 10/24/16) Implant: 10/24/2016 Non-STEMI (non-ST elevated myocardial infarction) (Chronic) Hospital Course and Treatment Operations: None Procedures: None Summary of Care Provided: The patient is a 78 year old M was seen in the emergency room at [facility] [place] after suffering a syncopal episode at home in his bathroom, his found him and the patient was alert and was able to give details up to the time he had his syncopal episode. Patient denied any chest pain, he denied any abdominal pain. Patient was transported to the emergency room by squad, work-up in the emergency room showed an elevated white blood cell count of 13.2, hemoglobin was 11.5, creatinine was elevated at 1.69, BUN was 28. Patient was noted to be hypotensive in the emergency room by the emergency room physician with systolic blood pressures in the 80s. Patient was given fluids in the emergency room which corrected his blood pressure, systolic readings remained in the low 100s. Patient was placed into observation status on PCU for dehydration which was suspected to be secondary to use of Lasix with an overlay of recent preparation for colonoscopy which the patient had on 10/20/2018. In the animal nutritionist hours of 10/22/2018, it was noted that the patient's systolic blood pressure dropped to 85, repeat CBC was obtained and the patient underwent a CAT scan of the abdomen and pelvis without contrast to rule out aortic dissection or intra-abdominal pathology. Patient's repeat hemoglobin was lower at 9.7, the patient did not appear tachycardic however. Patient's CAT scan showed diffuse amount of blood throughout the abdominal cavity including the pelvis, there was an enlargement of the spleen and it was felt that the patient had a splenic tear from possible trauma. General surgery was consulted and saw the patient and recommended transfer to a tertiary facility, patient and the patient's family agreed and he was transported to [facility] in stable condition. Patient received 2 units of packed RBCs which were hung prior to his transport to [facility]. General: Alert, Oriented x3, Cooperative, Well developed, Well nourished, - - Patient appeared frail and weak HEENT: Atraumatic, PERRLA, EOMI, Normocephalic Oral: Moist Mucosa Neck: Supple, No JVD, Negative Carotid Bruits, No Nuchal Rigidity, Trachea Midline, Thyroid Normal Size and Texture Lungs: Clear to auscultation, Normal air movement, No rhonchi, No wheeze, No rales Cardiovascular: Regular rate, Regular Rhythm, Normal S1, Normal S2, No murmurs, No Ectopic Activity, PMI Normal, No rub noted, No Gallop Abdomen: Bowel Sounds Present, Soft, Non Tender, Non-Distended, No hernias noted Extremities: No clubbing, No cyanosis, No edema, Capillary Refill Less than 3 Seconds Skin: No rashes, No breakdown Musculoskeletal: No Tenderness to Palpation of Joints or Extremities Neurological: Cranial nerves II-XII grossly intact, Neuro grossly intact, Sensory exam intact to light touch and pain, Coordination normal Psych/Mental Status: Normal Affect, Appropriate, Alert and oriented to time, place, person, mood and affect Vital signs: Temperature 98.8 ?F, pulse rate 92, blood pressure 122/103, respiratory rate 17, pulse ox on room air 94% - Physical Exam Vital Signs Temp Pulse Resp BP Pulse Ox 98.8 F 92 17 122/103 H 94 10/22/18 05:48 10/22/18 05:48 10/22/18 05:48 10/22/18 05:48 10/22/18 05:48 Oxygen Delivery Method Room Air Weight: 69.9 kg Body Mass Index (BMI) 22.1 Intake and Output for Last 24 Hours 10/20/18 10/21/1819 23:59 23:59 23:59 Intake Total 932 / 932 Balance 932 / 932 Laboratory Tests Past 24 Hrs 10/21/18 10/21/18 10/21/18 19:30 19:30 19:30 WBC 13.2 H RBC 3.61 L Hgb 11.5 L Hct 34.6 L MCV 95.8 H MCH 31.9 MCHC 33.2 RDW 13.3 RDW Differential 46.0 H Plt Count 184 MPV 12.1 H Immature Gran % (Auto) 0.200 Neut % (Auto) 82.3 H Lymph % (Auto) 9.6 L Norman % (Auto) 6.5 Eos % (Auto) 1.2 Baso % (Auto) 0.2 Absolute Neuts (auto) 10.9 H Absolute Lymphs (auto) 1.26 Total Counted Not Reportable Sodium 140 Potassium 4.0 Chloride 107 Carbon Dioxide 25.0 Anion Gap 8 BUN 28 H Creatinine 1.69 H Estim Creat Clear Calc 36.33 Est GFR (MDRD) Af Amer 51 L Est GFR (MDRD) Non-Af 42 L BUN/Creatinine Ratio 16.6 Glucose 184 H Lactic Acid 1.3 Calcium 7.8 L Blood Type Antibody Screen Crossmatch 10/22/18 10/22/18 10/22/18 02:50 02:50 03:54 WBC 14.4 H RBC 3.05 L Hgb 9.7 L Hct 28.8 L MCV 94.4 H MCH 31.8 MCHC 33.7 RDW 13.5 RDW Differential 46.4 H Plt Count 178 MPV 11.7 Immature Gran % (Auto) 0.100 Neut % (Auto) 86.5 H Lymph % (Auto) 6.3 L Norman % (Auto) 6.9 Eos % (Auto) 0.1 Baso % (Auto) 0.1 Absolute Neuts (auto) 12.5 H Absolute Lymphs (auto) 0.90 Total Counted Not Reportable Sodium 143 Potassium 4.3 Chloride 111 H Carbon Dioxide 23.0 Anion Gap 9 BUN 34 H Creatinine 1.76 H Estim Creat Clear Calc 34.20 Est GFR (MDRD) Af Amer 48 L Est GFR (MDRD) Non-Af 40 L BUN/Creatinine Ratio 19.3 Glucose 127 H Lactic Acid Calcium 7.6 L Blood Type A POSITIVE Antibody Screen NEGATIVE Crossmatch See Detail Home Medications: Medications to take at Discharge Vit C/E/Zn/Coppr/Lutein/Zeaxan [Preservision Areds 2 Softgel] 1 ea PO DAILY 05/30/16 Nitroglycerin (INPATIENT USE) [Nitrostat] 0.4 mg SUBLINGUAL Q5M PRN 10/23/16 Aspirin [Aspirin, Baby] 81 mg PO DAILY@0800 03/25/17 oxcarbazepine 600 mg tablet 600 mg PO BID 03/13/18 Carvedilol [Coreg (Beta Artis)] 12.5 mg PO BID 10/21/18 Cholecalciferol (VIT D3) [Vitamin D] 1,000 unit PO DAILY 10/21/18 Furosemide [Lasix] 40 mg PO DAILY 10/21/18 Ramipril [Altace] 5 mg PO DAILY 10/21/18 Rosuvastatin Calcium [Crestor] 10 mg PO QHS 10/21/18 Primary Care Physician: Zeferino Lantigua MD [Primary Care Provider] - Disposition: Acute care Hospital Minutes spent on discharge:: 32 Patient Condition:: Stable Medical Necessity - Tobacco Use Smoking Status: Current every day smoker Tobacco Use: Cigarettes Meaningful Use Info Meaningful Use Diagnoses (Choose all that apply): None applicable Code Visit OBSV E&M: 50510 Observation care discharge
== END 2018-10-22 05:55 | disposition short-term general hospital (02) ==
LOC: ED 20:35 → MS3 21:14 → PCU 10-22 08:53
PROVIDERS: Admitting Provider Internal Medicine; Emergency Provider Emergency Medicine; Family Provider Family Medicine; PCP Family Medicine; Referring Provider Internal Medicine; Visit Provider Internal Medicine
DX: S36.030A Superficial (capsular) laceration of spleen, initial encounter (principal); S31.619A Laceration without foreign body of abdominal wall, unspecified quadrant with penetration into peritoneal cavity, initial encounter; T79.4XXA Traumatic shock, initial encounter; X58.XXXA Exposure to other specified factors, initial encounter; Y93.9 Activity, unspecified; Y92.9 Unspecified place or not applicable; N17.9 Acute kidney failure, unspecified; I25.5 Ischemic cardiomyopathy; D62 Acute posthemorrhagic anemia; I95.9 Hypotension, unspecified; K66.1 Hemoperitoneum; I50.22 Chronic systolic (congestive) heart failure; I11.0 Hypertensive heart disease with heart failure; E78.5 Hyperlipidemia, unspecified; I48.0 Paroxysmal atrial fibrillation; I25.2 Old myocardial infarction; F17.210 Nicotine dependence, cigarettes, uncomplicated; D12.6 Benign neoplasm of colon, unspecified; I25.10 Atherosclerotic heart disease of native coronary artery without angina pectoris; Z95.810 Presence of automatic (implantable) cardiac defibrillator; Z95.1 Presence of aortocoronary bypass graft; Z79.899 Other long term (current) drug therapy; Z79.82 Long term (current) use of aspirin
CPT/HCPCS: 36415; 74176; 80048; 83605; 85025; 86850; 86900; 86920; 86921; 86922; 93005; 96360; 96361; 99218; 99285; J7030; J7040; P9016; A4216; G0378